=== PATIENT | female | born 1955 | race Caucasian/White ===

== ENCOUNTER 2024-01-20 11:29 | Emergency (ER) | payer MEDICARE, OTHER, SELFPAY ==
[2024-01-20 11:31] VITALS: BP 175/94
[2024-01-20 12:13] LABS: ALT (SGPT) 19 U/L (0-35); AST (SGOT) 23 U/L (14-36); Albumin 4.6 g/dl (3.5-5.0); Alkaline Phosphatase 79 U/L (38-126); Blood Urea Nitrogen 11 mg/dl (7-17); Calcium 9.8 mg/dl (8.4-10.2); Carbon Dioxide 29 mmol/L (22-30); Chloride 101 mmol/L (98-107); Glucose 144 mg/dl (70-99); Potassium 4.4 mmol/L (3.5-5.1); Sodium 138 mmol/L (135-145); Total Bilirubin 0.5 mg/dl (0.2-1.3); Total Protein 6.9 g/dl (6.3-8.2); eGFR > 60.00
[2024-01-20 12:17] LABS: % Basophils 0.5 % (0-2); % Eosinophils 1.7 % (0-6); % Immature Granulocytes 0.5 % (0-0.5); % Lymphocytes 32.9 % (20.5-51.1); % Monocytes 7.2 % (1.7-9.3); % Neutrophils 57.2 % (42.2-75.2); Absolute Eosinophils 0.1 10^3/uL (0-0.7); Absolute Lymphocytes 1.9 10^3/uL (1.2-3.4); Absolute Monocytes 0.4 10^3/uL (0.1-0.6); Absolute Neutrophils 3.4 10^3/uL (1.4-6.5); Hematocrit 41.5 % (37.0-47.0); Hemoglobin 13.9 g/dL (12.0-16.0); Mean Corp Hgb Conc. 33.5 g/dL (33.0-37.0); Mean Corpuscular Hgb 29.6 pg (27.0-31.0); Mean Corpuscular Volume 88.5 fL (81.0-99.0); Mean Platelet Volume 8.8 fL (7.4-10.4); Nucleated Red Blood Cells % 0 %; Platelet Count 242 10^3/uL (130-400); Red Blood Cell Count 4.69 10^6/uL (4.20-5.40); Red Cell Dist. Width 12.7 % (11.5-14.5); White Blood Cell Count 5.9 10^3/uL (4.8-10.8)
[2024-01-20 12:18] LABS: PT 13.2 Sec (11.4-14.6)
[2024-01-20 12:19] LABS: APTT 29.6 Sec (23.4-35.0)
[2024-01-20 12:22] LABS: Troponin I < 0.012 ng/ml
[2024-01-20 14:50] VITALS: BP 160/77
[2024-01-20 15:00] VITALS: BP 160/82
[2024-01-20 16:03] VITALS: BP 150/93
[2024-01-20 16:39] LABS: Troponin I < 0.012 ng/ml
[2024-01-20 17:00] VITALS: BP 159/82
--- NOTE | 2024-01-20 18:54 | ED.GENMED ---
History of Present Illness
General
Chief Complaint: Chest Pain
Source: patient and spouse
Time Seen by Provider: 01/20/24 14:43
History of Present Illness
History of Present Illness:
This is 68-year-old female who presents left-sided chest pain that radiated up toward her shoulder back the start around 11 AM. The patient states that the pain is now resolved. She states that she did feel a little bit like she could not take a
deep breath. She denies pleuritic nature to the pain though. Pain came on while she was just getting ready to go to the gym. Patient denies palpitations or hemoptysis. No leg swelling. No fevers. No rash. No injury.
Past History
Past History
ED Past Medical History: Asthma and Hypercholesterolemia
ED Past Surgical History: Gynecological
Social History
Tobacco: Non-smoker
Drug: None
Personal:
Living: with family
Employment: Employed
Family History
Family History: Other
Phy Exam
Physical Exam
Physical Exam:
CONSTITUTIONAL Patient alert and oriented to person, place and time. Well-appearing. Vital signs reviewed.
HEAD atraumatic, normocephalic.
EYES eyelids normal to inspection, Pupils equally round and reactive to light, Extraocular muscles intact, Conjunctiva normal, Sclera normal.
NECK normal range of motion, Trachea midline, no jugular venous distention.
RESPIRATORY CHEST No respiratory distress noted, Chest expansion equal, Bilateral breath sounds clear.
CARDIOVASCULAR regular rate and rhythm, Heart sounds normal.
ABDOMEN abdomen nontender, Bowel sounds normal. No distention.
BACK normal inspection, no obvious deformities
UPPER EXTREMITY range of motion normal, Motor strength normal, no cyanosis, no edema.
LOWER EXTREMITY range of motion normal, Motor strength normal, no cyanosis, no edema.
NEURO Speech normal, No focal motor deficits, Pax[place] coma scale 15, Memory normal, Cranial Nerves intact to screening exam.
SKIN skin warm, dry, and normal in color.
PSYCHIATRIC patient oriented to person place and time, Normal affect.
Scores
Heart Score for Chest Pain Patients
STEMI patient?: No
History: Slightly or Non-Suspicious
ECG: Normal
Age: >/= 65 years
Risk Factors: 1 or 2 Risk Factors
Troponin: </= Normal Limit
Heart Score for Chest Pain Patients: 3
Heart Score Risk: 2.5% MACE over next 6 weeks
Course
Orders/Labs/Results
Orders:
Orders
01/20/24 11:34
Electrocardiogram (*1) Urgent
Reason for Study: Chest Pain
EKG- Treatment ONCE
01/20/24 11:44
Complete Blood Count/With Diff Urgent
Comprehensive Metabolic Panel Urgent
PT/INR [Prothrombin Time] Urgent
PTT Urgent
Troponin I Urgent
01/20/24 15:08
CR Chest - 2 Views Urgent
Comment:
Reason For Exam: cp
01/20/24 15:40
CT Chest Angio W/wo Iv Contras Urgent
Comment:
Reason For Exam: cp, r/o dissection/aneurysm
01/20/24 16:04
Troponin I Urgent
01/20/24 16:05
Electrocardiogram (*1) Urgent
Reason for Study: Chest Pain
01/20/24 16:06
EKG- Treatment ONCE
Abnormal Lab Results
01/20/24
11:44
Creatinine 0.5 L mg/dL
(0.6-1.0)
Glucose 144 H mg/dl
(70-99)
01/20/24 11:44
01/20/24 11:44
Vital Signs
Initial and Last Documented VS:
Initial Vital Signs
Temp Pulse Resp BP Pulse Ox
98.5 F 80 18 175/94 97
01/20/24 11:31 01/20/24 11:31 01/20/24 11:31 01/20/24 11:31 01/20/24 11:31
Last Documented Vital Signs
Temp Pulse Resp BP Pulse Ox
98.5 F 71 20 155/87 94
01/20/24 11:31 01/20/24 19:18 01/20/24 19:18 01/20/24 19:11 01/20/24 19:11
MDM/Problems Addressed
MDM/Problems Addressed:
Atypical chest pain, hypertension
*Pulse Oximetry
Patient hypoxic: no
*EKG
Interpreted by ED Provider?: Yes
Interpretation: normal
Rate: normal
Rhythm: sinus
[place]: normal axis
Interval: normal interval
Ischemia: no ischemia
*Activity Therapy Teacher Interpretation
Rate: normal
Rhythm: sinus
*Critical Care Note
Total Time (30-74mins, 75-104mins- exclusive of procedures): Not Applicable
Data Reviewed
Source: patient
Prescriptions/Medications Considered But Not Given:
Consider nitroglycerin the pain has resolved.
Patient Management
Discussion with other providers: Radiologist (Case discussed with radiology regarding her chest x-ray and radiology recommended CTA)
Escalation/DeEscalation of care consider admission/obs:
CTA negative. Troponin x 2 negative. EKG normal. Patient does appear well. Will refer to cardiology chest pain follow-up hotline.
ED Attending Note
-
Portions of this chart may have been created with voice recognition software.� Occasional wrong word or��sound alike� substitutions may have occurred due to the inherent limitations of voice recognition software.
Discharge Plan
Departure
Patient Disposition: Home (Routine Discharge)
Date of Disposition: 01/20/24
Time of Disposition: 18:54
Patient with high blood pressure during this ER visit?: Yes
Discharge Problem:
Chest pain
Instructions: Chest Pain DCA Follow Up, BLOOD PRESSURE
Referrals:
Kelly Patrick, [Family Provider] -
Activity Restrictions/Additional Instructions:
Please avoid strenuous or exertional activity until cleared by cardiology. Please see cardiology in the next 48 hours for reevaluation. Return immediately for worsening pain, shortness breath, palpitations, sweating, nausea, weakness of any kind,
numbness, tingling or any other concerns.
Cardiology has been notified and a follow up appointment has been requested. Someone will call you on the next business day to schedule a follow up appointment.
Interventions
Interventions:
*Risk Screen - Suicide Last Done: 01/20/24 14:52
*General Assessment Last Done: 01/20/24 14:51
*Neglect/Abuse Screening Last Done: 01/20/24 19:19
ED- Fall Risk Assessment Last Done: 01/20/24 14:51
*ED COVID-19 Vaccine History Last Done: 01/20/24 14:52
*Nursing Disposition Last Done: 01/20/24 19:19
ED- Cardiac Assessment Last Done: 01/20/24 15:14
Discharge Date and Time
Discharge Date/Time: 01/20/24 19:20
Print Language: TAJIK
[2024-01-20 19:11] VITALS: BP 155/87
== END 2024-01-20 19:20 | disposition home or self-care (01) ==
LOC: EMR 11:29
PROVIDERS: Emergency Medicine; EMERGENCY PHYSICIAN Emergency Medicine; FAMILY PHYSICIAN Family Medicine
DX: R07.89 Other chest pain (principal); J45.909 Unspecified asthma, uncomplicated; E78.00 Pure hypercholesterolemia, unspecified; I10 Essential (primary) hypertension
CPT/HCPCS: 99284; 71046; 71275; 80053; 84484; 85025; 85610; 85730; 93005; Q9967

== ENCOUNTER → 2024-04-03 08:16 | Outpatient (REF) | payer MEDICARE, OTHER, SELFPAY | LOC: RCS 08:16 | PROVIDERS: ATTENDING PHYSICIAN Internal Medicine Cardiovascular Disease; FAMILY PHYSICIAN Family Medicine | DX: R07.89 Other chest pain (principal) | CPT/HCPCS: 93017; 93350 ==

== ENCOUNTER → 2025-02-25 06:54 | Outpatient (REF) | payer MEDICARE, OTHER, SELFPAY ==
--- NOTE | 2025-02-26 12:12 | W.IMMPOSTOP ---
Surgical Immed Post Op Note
-
Primary Surgeon: Emmett
Assisting Surgeon: None
Pre-op Diagnosis: Left breast DCIS
Post-op Diagnosis: Same
Procedure Performed: Left localized lumpectomy and oncoplastic mastoplasty
Anesthesia Type: TIVA
Specimen / Cultures: Left lumpectomy and margins
Estimated Blood Loss: 6cc
Complications: None
Operative Findings: Clip, reflector and calcs in specimen
--- NOTE | 2025-02-26 12:13 | OR.RPT ---
Operative Report
Operative Report
Procedure: 02/26/2025
Surgeon: Emmett
Preoperative diagnosis: Left breast DCIS
Postoperative diagnosis: Left breast DCIS
Procedure: Left localized lumpectomy and closure with oncoplastic mastoplasty
The patient is a 69-year-old female who had an interval change on screening mammography leading to stereotactic biopsy showing DCIS of the left breast. She presents now for breast conservation with localized lumpectomy. On the date prior to the
procedure the patient presented to the [facility] where a Nirmala reflector was placed at the appropriate area in the left breast.
On the day of the procedure the patient presented to the same-day surgical services unit where she was prepped. She verified site and procedure. DVT and antibiotic prophylaxis were provided and she was taken to the operating room.
In the supine position intravenous sedation was delivered and the left breast was prepped and draped in the usual sterile fashion. An appropriate timeout was performed by all team members.
All tissues were anesthetized with 1% lidocaine plain. A superomedial circumareolar incision was made sharply with the blade and the oncoplastic plane was entered and elevated using the electrocautery. Savvy probe was used to sound down the
reflector signal and a wide radial lumpectomy was performed with the cautery. Time out of body was noted and the specimen was oriented for the pathologist. Specimen radiography confirmed the presence of clip, reflector, and calcifications within
it. Additional margins were harvested for permanent analysis from the posterior condylar medial, superior, lateral, inferior, and posterior and anterior dimensions. These were oriented as well. This left resulting defect of 7 x 7 cm. Therefore
in an oncoplastic fashion 2 separate parenchymal incisions were made to advance tissue into the defect. Hemoclips were placed in the resection cavity. Hemostasis was maintained with the cautery or using 3-0 silk tie. Marcaine 0.5% plain was
instilled and the wound was closed using simple interrupted 3-0 plain on deep intermediate and subcutaneous tissue and skin was closed with a running subcuticular 4-0 Monocryl. Surgical glue and sterile compressive dressings were applied. All
sponge needle and instrument counts were correct and the patient was transferred back to same-day surgical services for recovery
([id number])
== END ==
LOC: WDC 06:54
PROVIDERS: ATTENDING PHYSICIAN Surgery
DX: D05.92 Unspecified type of carcinoma in situ of left breast (principal)
CPT/HCPCS: 19281; A4648

== ENCOUNTER 2025-02-26 06:17 | Day surgery (SDC) | payer MEDICARE, OTHER, SELFPAY ==
[2025-02-15 14:17] VITALS: BMI 34.1
[2025-02-26 09:46] VITALS: BP 145/83; BMI 34.1
[2025-02-26] MEDS: TYLENOL 1000 MG PO (10:06)
[2025-02-26] MEDS: NORMOSOL-R/PLASMALYTE-A 1000 IV (10:07)
[2025-02-26] MEDS: LOVENOX 40 MG SC (10:07)
[2025-02-26 10:12] LABS: Glucose - Point of Care 111 mg/dl (70-99)
[2025-02-26 13:13] VITALS: BMI 34.1
== END 2025-02-26 12:55 | disposition home or self-care (01) ==
LOC: SDS 06:17
PROVIDERS: ATTENDING PHYSICIAN Surgery
DX: D05.12 Intraductal carcinoma in situ of left breast (principal); Z17.0 Estrogen receptor positive status [ER+]
CPT/HCPCS: 19301; 76098; 82962; 88305; 88307; 88360; A4648